=== PATIENT | male | born 1985 | race Caucasian/White ===

== ENCOUNTER 2016-12-20 13:27 | Inpatient (IN) | payer MEDICARE, OTHER ==
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
--- NOTE | ~2016-12-20 | PN ---
Unit #: [id number] #: [id number] Patient: JUANA GREEN [id number] [facility] [address] [place] [address] [id number] MR#: [id number] NAME: JUANA GREEN. ROOM: P121 Age: 31 Sex: M Admission Date: 12/20/2016 : 1985 Attending Physician: Kip Hernandez M.D. Admitting Physician: Kip Hernandez M.D. Primary Care Physician: Ariane Garcia PROGRESS NOTES DATE 12/22/2016 DISCUSSION The patient remains disorganized in his thinking and bizarre. He continues to request reinitiation of stimulant medication. He is back on his prescribed Zyprexa. He remains seclusive to room. This appears to be a fairly typical hospitalization for the patient and this physician would expect some stabilization but not for several more days. Dictated by... Kip Hernandez M.D. CB/cristela TD: 12/22/2016 15:05 JOB #: [id number] [facility] PROGRESS NOTES X Kip Hernandez MD PROGRESS NOTE
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
--- NOTE | ~2016-12-20 | HP ---
Unit #: [id number] #: [id number] Patient: ANANDA GREEN [id number] [place] [address] [id number] I MR#: [id number] NAME: ANANDA GREEN. ROOM: [facility] Age: 31 Sex: M Admission Date: 12/20/2016 : 1985 Attending Physician: Kip Hernandez M.D. Admitting Physician: Kip Hernandez M.D. Primary Care Physician: Дмитрий Armando M.D. HISTORY AND PHYSICAL HISTORY OF PRESENT ILLNESS Ananda is a 31 year old admitted to [address] [place] [address] with psychotic behavior. He is a poor historian, so his history is taken from his chart. He has had other admissions to this facility for the same. PAST MEDICAL HISTORY History of abusing Adderall. PAST SURGICAL HISTORY Ganglion cyst, right wrist. ALLERGIES Haldol. SOCIAL HISTORY He does not smoke. Drinks alcohol and has a history of abusing Adderall. FAMILY HISTORY Medically noncontributory. REVIEW OF SYSTEMS He does not answer any questions appropriately. There are no reports of nausea, vomiting, or diarrhea. He has had no cough or increased temperature. No complaints or indications of chest pain or shortness of breath. CURRENT MEDICATIONS 1. Claritin 10 mg q. day. 2. Flonase nasal spray q. day. 3. Prozac 20 mg q. day. 4. Zyprexa Zydis 10 mg q.h.s. 5. Trazodone 150 mg q.h.s. 6. Milk of Magnesia p.r.n. 7. Maalox p.r.n. 8. Tylenol p.r.n. 9. Loperamide p.r.n. PHYSICAL EXAMINATION GENERAL: Alert, thin. No apparent distress. VITAL SIGNS: Blood pressure 120/70, heart rate 80, respirations 16, and temperature 98.6. WEIGHT: 176. HEIGHT: 6 feet 3 inches. Unit #: [id number] #: [id number] Patient: ANANDA GREEN SKIN: Warm and dry without rash or lesion. HEENT: Normocephalic. TMs not viewed. Oral and nasal passages clear. Conjunctivae clear. PERRLA. EOMs intact. NECK: Supple without lymphadenopathy or thyromegaly. HEART: Regular rate and rhythm without murmur. LUNGS: Clear. ABDOMEN: Soft, nontender. : Not done. EXTREMITIES: No evidence of cyanosis, clubbing or edema. Moves all without focal deficit. NEUROLOGICAL: Unable to complete extended exam. He does move all extremities without focal deficit. Hand kiss machine operator is equal and gait is normal. IMPRESSION Psychiatric admission. RECOMMENDATIONS PSYCHIATRIC: Per psychiatrist. MEDICAL: I see no contraindication to participate in this facility's activities. MEDICAL PROGNOSIS Good. MEDICAL CONDITION Stable. Dictated by... Madison Gonzalez P.A.-C. for Ariane Garcia/shaniqua TD: 12/22/2016 10:59 JOB #: [id number] HISTORY AND PHYSICAL X Madison Gonzalez X HISTORY AND PHYSICAL
--- NOTE | ~2016-12-20 | PN ---
Unit #: [id number] #: [id number] Patient: JUANA GREEN [id number] [facility] [address] [place] [address] [id number] MR#: [id number] NAME: JUANA GREEN. ROOM: 15 Age: 31 Sex: M Admission Date: 12/20/2016 : 1985 Attending Physician: Kip Hernandez M.D. Admitting Physician: Kip Hernandez M.D. Primary Care Physician: Ariane Garcia PROGRESS NOTES DATE 12/24/2016 DISCUSSION The patient is stating that he has no intension of complying with depo medication for this reason. Invega will be discontinued and the patient restarted on Zydis 10 mg q.a.m. and 20 mg at h.s. I will also add Haldol 2 mg four times daily per the patient's request. The patient seems to be at or near his psychic baseline. We have had discussions with the patient's mother regarding realistic expectations of this and other psychiatric hospitalizations. THE PATIENT has been referred to the "act team" and we will look for them to visit with the patient prior to his discharge. Dictated by... Kip Hernandez M.D. CB/vance TD: 12/24/2016 18:32 JOB #: [id number] [facility] PROGRESS NOTES Page 1 of 1 X Kip Hernandez MD X PROGRESS NOTE
== END 2016-12-25 16:51 | disposition home or self-care (01) | DRG 885 ==
LOC: P2L 13:27 → P1S 18:36
DX: F31.30 Bipolar disorder, current episode depressed, mild or moderate severity, unspecified (principal); F15.20 Other stimulant dependence, uncomplicated; R45.851 Suicidal ideations; F84.0 Autistic disorder; F60.2 Antisocial personality disorder; L70.0 Acne vulgaris; Z88.5 Allergy status to narcotic agent
CPT/HCPCS: J1200; J1630; J2060; J3486

== ENCOUNTER 2017-01-18 16:53 | Inpatient (IN) | payer MEDICARE ==
--- NOTE | ~2017-01-18 | PN ---
Unit #: [id number] #: [id number] Patient: [facility] GREEN [id number] [facility] [address] [place] [address] [id number] I MR#: [id number] NAME: JUANA GREEN. ROOM: P131 Age: 31 Sex: M Admission Date: 01/18/2017 : 1985 Attending Physician: Kip Hernandez M.D. Admitting Physician: Kip Hernandez M.D. Primary Care Physician: Дмитрий Armando M.D. [facility] PROGRESS NOTES IDENTIFYING INFORMATION The patient is a 31-year-old single white male well known to this physician. He is admitted after he presented to this facility voicing increasing paranoia and reporting abuse of alcohol. CHIEF COMPLAINT None given. INFORMANT Patient, reliability poor. HISTORY OF PRESENT ILLNESS The patient is a 31-year-old white male well known to this physician from multiple previous admissions to this facility. He is readmitted after he had presented to this facility complaining of increasing paranoia. He had refused to remove his sunglasses during his interview. The patient reports that he has been using alcohol and states that he has been "trying not to use other substances." He does have an extensive methamphetamine abuse history. The patient states that he has been noncompliant with regard to psychotropic medications to include trazodone, Prozac, Haldol, and Zyprexa. The patient has refused to provide a urine or serum drug screen today stating "you are indicating my fluids." He has reported no suicidal ideation. He remains bizarre in his interactions with this physician. His most recent several hospitalizations had involved the patient coming to the hospital in a state of florid psychosis but resolving shortly leading this physician to believe that these are probably substance induced episodes given the patient's extensive methamphetamine abuse history. For more complete history of present illness, please refer to previously dictated notes. PAST PSYCHIATRIC HISTORY Reviewed, no changes. PAST MEDICAL HISTORY Reviewed, no changes. MEDICATIONS Trazodone, Prozac, Haldol, and Zyprexa. ALLERGIES None. FAMILY HISTORY Unit #: [id number] #: [id number] Patient: JUANA GREEN Reviewed, no changes. SOCIAL HISTORY Reviewed, no changes. MENTAL STATUS EXAMINATION Examination at this time reveals the patient to be a disheveled white male appearing stated age. She is in no apparent physical distress at the time of examination. He is awake, alert, and oriented in all spheres. His mood is dysphoric and irritable. His affect blunted. Speech is impoverished and evasive. There are no gross deficits in memory or cognition noted. Intelligence is judged to be in the low average range based on fund of knowledge. The patient is less than optimally cooperative during interview. He is currently denying suicidal or homicidal ideation. He does report positive paranoid delusional thinking. His judgment and insight appear to be significantly impaired. ASSETS AND LIABILITIES The patient's assets are to be assessed. Liabilities: Poor compliance with treatment, ongoing substance use, profound sociopathy. DIAGNOSTIC IMPRESSION 1. Dysthymic disorder. 2. Alcohol use disorder. 3. Methamphetamine use disorder. 4. Autism spectrum disorder. 5. Antisocial personality disorder. 6. Cystic acne. TREATMENT PLAN The patient will be restarted on previously prescribed medications and will be watched for any signs of alcohol withdrawal. Suicide precautions are in place. ESTIMATED LENGTH OF STAY 5 to 7 days. Dictated by... Kip Hernandez M.D. SIMIN/shaniqua TD: 01/19/2017 14:40 JOB #: [id number] Unit #: [id number] #: [id number] Patient: JUANA GREEN PROGRESS NOTES Page 1 of 1 X Kip Hernandez MD X PROGRESS NOTE
--- NOTE | ~2017-01-18 | HP ---
Unit #: [id number] #: [id number] Patient: JUANA GREEN [id number] [facility] [address] [place] [address] [id number] I MR#: [id number] NAME: JUANA GREEN. ROOM: P131 Age: 31 Sex: M Admission Date: 01/18/2017 : 1985 Attending Physician: Kip Hernandez M.D. Admitting Physician: Kip Hernandez M.D. Primary Care Physician: Дмитрий Armando M.D. HISTORY AND PHYSICAL The patient is a 31-year-old male admitted to [address] [place] [address] on 01/18/2017 for psychosis. Patient has a recent admission on 01/20/2017 where a history and physical was completed. That history and physical has been reviewed. No changes need to be made. Dictated by... Aracelis Tucker/cristela TD: 01/19/2017 20:07 JOB #: [id number] HISTORY AND PHYSICAL Page 1 of 1 X MATTEO LANIER APRN HISTORY AND PHYSICAL
--- NOTE | ~2017-01-18 | DS ---
Unit #: [id number] #: [id number] Patient: JUANA GREEN [id number] [facility] [address] [place] [address] [id number] I MR#: [id number] NAME: JUANA GREEN. ROOM: P131 Age: 31 Sex: M Admission Date: 01/18/2017 : 1985 Discharge Date: 01/21/2017 Attending Physician: Kip Hernandez M.D. Primary Care Physician: Дмитрий Armando M.D. DISCHARGE SUMMARY REASON FOR ADMISSION The patient is a 31-year-old single white male, admitted to the [address] [place] [address] unit after he had presented to this facility claiming to be suicidal and having psychotic thoughts. HOSPITAL COURSE The patient was admitted to the [address] [place] [address] unit and restarted on previously prescribed home medications including haloperidol, trazodone, Prozac, and Zyprexa. The patient refused to provide blood or urine making any assessment of substance use outside the hospital and possibly raise the suspicion of this physician that the patient's psychotic symptoms were likely psychostimulant induced given the patient's extensive history of psychostimulant abuse. The patient cleared much more rapidly than during previous hospitalizations. By 01/20/2017, he was requesting discharge and appeared to be at or near his baseline. By 01/21/2017, the patient was sustaining progress and discharge was ordered. FINAL DIAGNOSES Dysthymic disorder, autism spectrum disorder, antisocial personality disorder, psychostimulant use disorder, alcohol use disorder. DISPOSITION ON DISCHARGE The patient is discharged on the following medications; trazodone 150 mg at h.s. p.r.n. insomnia, Prozac 20 mg once daily for depression, Haldol 2 mg q.i.d. for psychosis, Zydis 10 mg q.a.m. and 20 mg at h.s. for psychosis. DISCHARGE INSTRUCTIONS No dietary or physical restrictions were placed upon the patient at the time of discharge. PROGNOSIS His prognosis remains guarded given the profundity and severity of his illness and history of poor compliance with treatment admixed with his ongoing substance abuse. Dictated by... Kip Hernandez M.D. CB/shelley TD: 01/22/2017 02:53 Unit #: [id number] #: [id number] Patient: JUANA GREEN JOB #: [id number] DISCHARGE SUMMARY Page 1 of 1 X Kip Hernandez MD X DISCHARGE SUMMARY
--- NOTE | ~2017-01-18 | PN ---
Unit #: [id number] #: [id number] Patient: JUANA GREEN [id number] [facility] [address] [place] [address] [id number] MR#: [id number] NAME: JUANA GREEN ROOM: P131 Age: 31 Sex: M Admission Date: 01/18/2017 : 1985 Attending Physician: Kip Hernandez M.D. Admitting Physician: Kip Hernandez M.D. Primary Care Physician: Ariane Garcia PROGRESS NOTES DATE 01/20/2017 DISCUSSION The patient appears improved today. He is cooperative and appears to be at or near his psychiatric baseline He is requesting discharge but is agreeable to remain in the hospital for the day of observation. Dictated by... Kip Hernandez M.D. CB/vance TD: 01/21/2017 03:33 JOB #: [id number] [facility] PROGRESS NOTES Page 1 of 1 X Kip Hernandez MD X PROGRESS NOTE
== END 2017-01-21 14:00 | disposition home or self-care (01) | DRG 881 ==
LOC: P1S 16:53
DX: F34.1 Dysthymic disorder (principal); F15.20 Other stimulant dependence, uncomplicated; F84.0 Autistic disorder; F60.2 Antisocial personality disorder; F10.20 Alcohol dependence, uncomplicated; Z91.14 Patient's other noncompliance with medication regimen; L70.0 Acne vulgaris